=== PATIENT | male | born 1980 | race Caucasian/White ===

== ENCOUNTER 2024-03-02 09:54 | Day surgery (SDC) | payer OTHER ==
[2024-03-02 10:51] VITALS: BP 161/92; TEMP 97.7
== END 2024-03-02 13:46 | disposition home or self-care (01) ==
LOC: ONC/OP 09:54
PROVIDERS: ATTEND Internal Medicine Hematology & Oncology
DX: D50.0 Iron deficiency anemia secondary to blood loss (chronic) (principal); D53.9 Nutritional anemia, unspecified; Z88.2 Allergy status to sulfonamides
CPT/HCPCS: 96365; 96366; 96367; J1200; J2916; J7050